=== PATIENT | male | born 1955 | race American Indian/Alaskan Native ===

== ENCOUNTER 2019-12-01 07:40 | Day surgery (SDC) | payer MEDICAID ==
[~2019-12-01 07:40] MED LIST: GENTAMICIN/NS 80 MG/100 ML 100 ML IV SCH; LACTATED RINGERS 1,000 ML IV SCH; MIDAZOLAM 2 MG/2 ML INJ IV NR; ceFAZolin/STERILE WATER 2 GM/20 ML SYRINGE IV NR
--- NOTE | 2019-12-01 08:40 | Anesthesia Consultation ---
Anesthesia Consult and Med Hx Date of service: 12/01/19 - Airway Anesthetic Teeth Evaluation: Edentulous ROM Head & Neck: Adequate Mental/Hyoid Distance: Adequate Mallampati Class: Class III Intubation Access Assessment: Possibly Difficult - Pulmonary Exam CTA: Yes - Cardiac Exam Cardiac Exam: RRR - Pre-Operative Health Status ASA Pre-Surgery Classification: ASA3 Proposed Anesthetic Plan: General - Pulmonary Hx Smoking: No Hx Respiratory Symptoms: No Hx Sleep Apnea: No (MANDO PRE SCREEN HIGH RISK) - Cardiovascular System Hx Hypertension: Yes (has not taken antihypertensive in several days) Hx Heart Attack/AMI: No Hx Percutaneous Transluminal Coronary Angioplasty (PTCA): No - Central Nervous System CVA: No - Endocrine Hx Renal Disease: No Hx Liver Disease: No Hx Insulin Dependent Diabetes: No Hx Non-Insulin Dependent Diabetes: No Hx Hypothyroidism: Yes (off meds x2-3yrs) - Other Systems Hx Obesity: Yes (BMI 32) - Additional Comments Anesthesia Medical History Comments: No hx anesthetic complications.
--- NOTE | 2019-12-01 08:40 | Anesthesia Day of Surgery ---
Anesthesia Day of Surgery - Day of Surgery Patient Examined: Yes Patient H&P Reviewed: Yes Patient is NPO: Yes
[2019-12-01] MEDS ORDERED: HYDROmorphone 1 MG/1 ML INJ IV PRN (09:00)
[2019-12-01] MEDS ORDERED: propofoL 200 MG/20 ML VIAL IV ONE (10:08)
[2019-12-01] MEDS ORDERED: HYDROmorphone 1 MG/1 ML INJ ONE (10:08)
[2019-12-01] MEDS ORDERED: LIDOCAINE MPF (2%) 20 MG/1 ML VIAL 5 ML ONE (10:08)
[2019-12-01] MEDS ORDERED: WATER FOR IRRIG STERILE 2000 ML IR ONE (11:18)
[2019-12-01] MEDS ORDERED: ONDANSETRON 4 MG/2 ML INJ ONE (11:23)
[2019-12-01] MEDS ORDERED: KETOROLAC 30 MG/1 ML INJ ONE (11:24)
--- NOTE | 2019-12-01 11:30 | Short Stay Summary ---
Short Stay Documentation Date of service: 12/01/19 Narrative H&P: 64 yr old male psa 12 & BPH - History Past Medical History: other (back pain) Past Surgical History: No surgical history Social history: no significant social history - Allergies and Medications Current Medications: Allergies No Known Allergies Allergy (Verified 11/24/19 15:39) Home Medications Medication Instructions Recorded Confirmed Last Taken Type Ibuprofen [Motrin] 600 mg PO Q8H PRN 11/24/19 12/01/19 11/24/19 History Tamsulosin [Flomax] 0.4 mg PO QDAY 11/24/19 12/01/19 11/28/19 History lisinopriL [Zestril TAB] 10 mg PO QDAY 11/24/19 12/01/19 11/27/19 History Active Medications Cefazolin Sodium (Ancef/Sterile Water 2 Gm/20 Ml) 2 gm IV PREOP NR Stop: 12/01/19 22:00 Hydromorphone HCl (Dilaudid) 0.5 mg IV Q10MIN PRN PRN Reason: Pain , Severe (7-10) Stop: 12/01/19 16:00 Gentamicin Sulfate/Sodium Chloride (Gentamicin/Ns 80 Mg/100 Ml) 100 mls @ 200 mls/hr IV PREOP SABIHA Stop: 12/01/19 22:00 Lactated Ringer's (Lactated Ringers) 1,000 mls @ 100 mls/hr IV DIRECT SABIHA Stop: 12/01/19 23:59 Last Admin: 12/01/19 09:35 Dose: 100 mls/hr Documented by: Midazolam HCl (Versed) 2 mg IV PREOP NR Stop: 12/01/19 23:59 Last Admin: 12/01/19 09:42 Dose: 2 mg Documented by: - Physical exam General appearance: no acute distress, well-nourished Integumentary: no rash, no growths HEENT: Atraumatic, PERRLA, EOMI Lungs: Clear to auscultation Heart: Regular rate, No murmurs Gastrointestinal: normal Male Genitourinary: normal Rectal Exam: deferred Extremities: no ischemia, No edema Neurological: Normal gait - Brief post op/procedure progress note Date of procedure: 12/01/19 Pre-op diagnosis: BPH, psa 12 Post-op diagnosis: same Procedure: cysto, rpg, pus 45cc, bx Anesthesia: GETA Surgeon: AUBREY HEWITT Pathology: list (prostate cores) Specimen disposition: to lab Condition: stable - Hospital course Hospital course: mal askew,info on chart - Disposition Condition at discharge: Stable Disposition: DC-01 TO HOME OR SELFCARE Short Stay Discharge Plan Follow up with: RYAN RAMIREZ MD [Primary Care Provider] - 7 Days
--- NOTE | 2019-12-01 11:57 | Operative Report ---
PREOPERATIVE DIAGNOSES: PSA 12, benign prostatic hypertrophy. POSTOPERATIVE DIAGNOSES: PSA 12, benign prostatic hypertrophy. PROCEDURE: Cystoscopy, bilateral retrograde pyelograms, transrectal ultrasound (45 g gland) and biopsy of prostate. SURGEON: Malcolm Felipe MD ANESTHESIA: General. ESTIMATED BLOOD LOSS: Minimal. FLUIDS: Crystalloid. COMPLICATIONS: No complications. INDICATIONS: This 64-year-old gentleman seen in the office for a persistent elevated PSA of 12. Attempts at prostate ultrasound under local anesthetic were unsuccessful due to pain. He presents now for surgical intervention. DESCRIPTION OF PROCEDURE: The patient was taken to the operative suite, placed in a supine position. After adequate general anesthesia, he was placed in a dorsal lithotomy position, prepped and draped in a sterile fashion. Pancystourethroscopy was performed with a 22-Chinese Storz cystoscope with moderate trilobar obstruction (median bar). Both ureteral orifices were in normal position. No tumors or stones were noted in the bladder. Bilateral retrograde pyelograms were obtained with an 8-Chinese [place] catheter and 8 mL of contrast. No filling defects or obstruction. Next, using a transrectal ultrasound probe transverse and sagittal images were taken and measurements revealed a volume of 45 g. Template biopsy of 12 cores were obtained, 4 at the base, 4 at the mid level and then at the apex. No suspicious lesions could be appreciated. The patient tolerated the procedure well. Rectal exam was benign. He was extubated and taken to recovery room. He will go home on Bactrim and [place] and follow up in the office. JOB# [id number] [facility]
--- NOTE | 2019-12-01 11:58 | Fluoroscopy Report ---
INTRAOPERATIVE FLUOROSCOPY: RETROGRADE UROGRAPHY INDICATION: ELEVATED PSA W/BPH. TECHNIQUE: Intraoperative spot images were obtained during the procedure. FINDINGS: Both ureters and collecting systems were injected. No definite filling defects or stricture, please s ee procedure note for details. No extravasation is seen Fluoroscopy Time: 8 seconds. Fluoroscopy Images: 9. Signer Name: Del Moyer MD Signed: 12/01/2019 11:53 AM Workstation Name: [id number]
[2019-12-01] MEDS ORDERED: HYDROcodone/ACETAMINOPHEN 5-325 MG TAB ONE (12:00)
[2019-12-01] MEDS ORDERED: HYDROcodone/ACETAMINOPHEN 5-325 MG TAB PO PRN (12:01)
[2019-12-01 12:34] VITALS: BP 150/93
--- NOTE | 2019-12-01 12:53 | Post Anesthesia Evaluation ---
- Post Anesthesia Evaluation Patient Participated: Yes Airway Patent: Yes Stable Respiratory Function: Yes Nausea/Vomiting: No Temp > 96.8F: Yes Pain Manageable: Yes Adequeate Hydration: Yes Anesthesia Complications: No
--- NOTE | 2019-12-01 15:18 | Ultrasound Report ---
ULTRASOUND TRANSRECTAL HISTORY: Prostate biopsy, elevated PSA TECHNIQUE: Transrectal ultrasound FINDINGS: Transrectal ultrasound guidance was provided by radiology during prostate biopsy by urology . Prostate volume measures 45.6 cc. No discrete mass is demonstrated in the prostate gland. IMPRESSION: Successful ultrasound-guided prostate biopsy by urology. Signer Name: Jonny Preston Jr, MD Signed: 12/01/2019 3:13 PM Workstation Name: [id number]
== END 2019-12-01 07:41 | disposition home or self-care (01) ==
LOC: OR 07:40
PROVIDERS: ATTEND Urology
DX: N40.0 Benign prostatic hyperplasia without lower urinary tract symptoms (principal); R97.20 Elevated prostate specific antigen [PSA]; I10 Essential (primary) hypertension; E66.9 Obesity, unspecified; Z68.32 Body mass index [BMI] 32.0-32.9, adult; E03.9 Hypothyroidism, unspecified; Z79.899 Other long term (current) drug therapy; Z98.890 Other specified postprocedural states
CPT/HCPCS: 52005; 55700; 74420; 76872; 88305; A4217; J0690; J1170; J1580; J1885; J2250; J2405; J2704; J7120; Q9967

== ENCOUNTER 2021-03-12 06:08 | Day surgery (SDC) | payer MEDICAID ==
[~2021-03-12 06:08] MED LIST changes: -GENTAMICIN/NS 80 MG/100 ML 100 ML IV SCH; -ceFAZolin/STERILE WATER 2 GM/20 ML SYRINGE IV NR
--- NOTE | 2021-03-12 07:31 | Anesthesia Day of Surgery ---
Anesthesia Day of Surgery - Day of Surgery Patient Examined: Yes Patient H&P Reviewed: Yes Patient is NPO: Yes
--- NOTE | 2021-03-12 07:31 | Anesthesia Consultation ---
Anesthesia Consult and Med Hx Date of service: 03/12/21 - Airway Anesthetic Teeth Evaluation: Edentulous ROM Head & Neck: Adequate Mental/Hyoid Distance: Adequate Mallampati Class: Class III Intubation Access Assessment: Possibly Difficult - Pre-Operative Health Status ASA Pre-Surgery Classification: ASA2 Proposed Anesthetic Plan: General - Pulmonary Hx Smoking: No Hx Respiratory Symptoms: No Hx Sleep Apnea: No (MANDO PRE SCREEN HIGH RISK) - Cardiovascular System Hx Hypertension: Yes Hx Heart Attack/AMI: No Hx Percutaneous Transluminal Coronary Angioplasty (PTCA): No - Central Nervous System CVA: No Hx Psychiatric Problems: No - Endocrine Hx Renal Disease: No Hx Liver Disease: No Hx Insulin Dependent Diabetes: No Hx Non-Insulin Dependent Diabetes: No Hx Hypothyroidism: Yes (prior hx; no meds in several years) - Other Systems Hx Obesity: Yes (BMI 32) - Additional Comments Anesthesia Medical History Comments: No hx anesthetic complications.
[2021-03-12] MEDS ORDERED: HYDROcodone/ACETAMINOPHEN 5-325 MG TAB PO PRN (08:00)
[2021-03-12] MEDS ORDERED: HYDROmorphone 1 MG/1 ML INJ IV PRN (08:00)
[2021-03-12] MEDS ORDERED: ONDANSETRON 4 MG/2 ML INJ IV PRN (08:00)
[2021-03-12] MEDS ORDERED: GENTAMICIN/NS 80 MG/100 ML 100 ML IV SCH (08:00)
[2021-03-12] MEDS ORDERED: GENTAMICIN/NS 80 MG/100 ML 100 ML IV ONE (08:12)
[2021-03-12] MEDS ORDERED: ceFAZolin/Water 2 GM/20 ML 2 GM/20 ML SYRINGE IV SCH (08:30)
--- NOTE | 2021-03-12 09:03 | Short Stay Summary ---
Short Stay Documentation Date of service: 03/12/21 - History H&P: obtained from office - Allergies and Medications Current Medications: Allergies No Known Allergies Allergy (Verified 11/24/19 15:39) Home Medications Medication Instructions Recorded Confirmed Last Taken Type Ibuprofen [Motrin] 600 mg PO Q8H PRN 11/24/19 03/06/21 11/24/19 History amLODIPine [Norvasc] 5 mg PO DAILY 03/06/21 03/06/21 Unknown History Active Medications Hydrocodone Bitart/Acetaminophen (Hydrocodone/Acetaminophen 5-325 Mg Tab) 2 each PO ONCE PRN PRN Reason: Pain, Moderate (4-6) Stop: 03/12/21 18:00 Hydromorphone HCl (Hydromorphone 1 Mg/1 Ml Inj) 0.5 mg IV Q10MIN PRN PRN Reason: Pain , Severe (7-10) Stop: 03/12/21 18:00 Lactated Ringer's (Lactated Ringers) 1,000 mls @ 100 mls/hr IV DIRECT SABIHA Stop: 03/12/21 23:59 Gentamicin Sulfate/Sodium Chloride (Gentamicin/Ns 80 Mg/100 Ml) 100 mls @ 200 mls/hr IV ONCE@0800 SABIHA Stop: 03/12/21 21:00 Cefazolin Sodium (Ancef/Sterile Water 2 Gm/20 Ml) 2 gm in 20 mls @ 80 mls/hr IV PREOP SABIHA Stop: 03/12/21 21:00 Midazolam HCl (Midazolam 2 Mg/2 Ml Inj) 2 mg IV PREOP NR Stop: 03/12/21 23:59 Ondansetron HCl (Ondansetron 4 Mg/2 Ml Inj) 4 mg IV ONCE PRN PRN Reason: Nausea And Vomiting Stop: 03/12/21 18:00 - Brief post op/procedure progress note Date of procedure: 03/12/21 Pre-op diagnosis: elevated psa, bph Post-op diagnosis: same Procedure: cysto, rpg, pus bx Anesthesia: GETA Surgeon: AUBREY HEWITT Estimated blood loss: minimal Pathology: list (prostate cores) Specimen disposition: to lab Condition: stable - Hospital course Hospital course: bactrim,[place]co, post op info on chart - Disposition Disposition: 01 HOME / SELF CARE / HOMELESS Short Stay Discharge Plan Follow up with: RYAN RAMIREZ MD [Primary Care Provider] - 7 Days
--- NOTE | 2021-03-12 09:10 | Ultrasound Report ---
Limited prostate Ultrasound HISTORY: ELEVATED PSA. TECHNIQUE: Grayscale imaging performed. IMPRESSION: Ultrasound guidance provided for transrectal prostate biopsy. The prostate volume is 95 m L and the prostate appears heterogeneous. Please refer to the operative note for complete details. Signer Name: Satish Turner MD Signed: 03/12/2021 9:06 AM Workstation Name: [id number]
--- NOTE | 2021-03-12 09:19 | Operative Report ---
DATE OF SURGERY: 03/12/2021 PREOPERATIVE DIAGNOSES: Elevated PSA, benign prostatic hypertrophy. POSTOPERATIVE DIAGNOSES: Elevated PSA, benign prostatic hypertrophy. PROCEDURES: Cystoscopy, bilateral retrograde pyelograms, transrectal ultrasound, biopsy of prostate. SURGEON: Malcolm Felipe MD ANESTHESIA: General. ESTIMATED BLOOD LOSS: Minimal. FLUIDS: Crystalloid. COMPLICATIONS: No complications. INDICATIONS: This patient is a 65-year-old gentleman with a history of elevated PSA, negative biopsy in the past for a PSA of 12. He underwent previous biopsy. PSA continued to rise. We got an MRI, showed a right sided lesion. He presents now for possible saturation biopsy. Risks, benefits, and complications were explained. The patient agreed to proceed with surgical intervention. The patient did not want to proceed with fusion biopsy. DESCRIPTION OF PROCEDURE: The patient was taken to the operative suite, placed in a supine position. After adequate general anesthesia, placed in the dorsal lithotomy position, prepped and draped in a sterile fashion. Pancystourethroscopy was performed with a 22-Brazilian Storz cystoscope, no urethral abnormalities. His prostate did display some moderate trilobar obstruction. His bladder, no tumors or stones were noted. Both ureteral orifices in normal position. Bilateral retrograde pyelograms were obtained with an 8-[place] catheter and 8 mL of contrast. No filling defects or obstruction. He did have some J hooking of the lower ureters bilaterally. Next, using a transrectal ultrasound, measurements were taken, 95 mL prostate. There was a lesion on the right side mid base, which several cores were taken on the right mid side. Otherwise, template biopsy was taken. He was extubated. Rectal exam was benign. Taken to recovery room. He will go home on Bactrim, [place] and follow up in the office. TID: [id number] RECEIPT: [id number] NATHALIE/HUEY
[2021-03-12 10:54] VITALS: BP 143/98
--- NOTE | 2021-03-12 14:39 | Fluoroscopy Report ---
INTRAOPERATIVE FLUOROSCOPY: RETROGRADE UROGRAPHY INDICATION / CLINICAL INFORMATION: ELEVATED PSA W/BPH. TECHNIQUE: Intraoperative spot images were obtained during the procedure. FINDINGS: Images show bilateral retrograde urography See operative/procedure note by performing physician for full details. Fluoroscopy Time: 6 seconds. Fluoroscopy Images: 8. Signer Name: Matthias No MD Signed: 03/12/2021 2:34 PM Workstation Name: [id number]
== END 2021-03-12 10:25 | disposition home or self-care (01) ==
LOC: OR 06:08
PROVIDERS: ATTEND Urology
DX: R97.20 Elevated prostate specific antigen [PSA] (principal); N40.1 Benign prostatic hyperplasia with lower urinary tract symptoms; Z20.822 Contact with and (suspected) exposure to COVID-19; I10 Essential (primary) hypertension; E03.9 Hypothyroidism, unspecified; E66.9 Obesity, unspecified; Z68.32 Body mass index [BMI] 32.0-32.9, adult; Z79.899 Other long term (current) drug therapy; Z98.890 Other specified postprocedural states
CPT/HCPCS: 52005; 55700; 74420; 76872; 88305; 88344; C1758; J1580; J7120; Q9967; U0003